=== PATIENT | female | born 1995 | race Caucasian/White ===

== ENCOUNTER 2018-01-23 08:10 | Emergency (ER) | payer OTHER ==
[2018-01-23 08:24] VITALS: BP 124/87
[2018-01-23] MEDS ORDERED: DEXAMETHASONE 10 MG/ML VIAL PO STA (08:31)
--- NOTE | 2018-01-23 08:35 | ED Physician Documentation ---
PD HPI SKIN - Stated complaint Stated Complaint: RASH ALL OVER BODY - Chief complaint Chief Complaint: General - History obtained from History obtained from: Patient - History of Present Illness Timing - onset: How many days ago (4) Timing - duration: Days Timing - details: Gradual onset, Still present, Waxing and waning Location: LUE Quality / character: Itchy, Burning Improved by: Benadryl Associated symptoms: Headache. No: Fever, Myalgias, Joint pain, Facial swelling, Dyspnea, Abd pain, N/V/D, Urinary sx Contributing factors: Exposed to medication Similar symptoms before: Has not had sx before Recently seen: Clinic - Additional information Additional information: 22-year-old female who was treated for acne and irritable bowel syndrome developed a rash on her arm and neck 4 days ago and discontinued the use of dicyclomine. This was the medicine she had been on for the briefest period of time. She been on this medicine for approximately 10 days. Since stopping this she is continued to have outbreaks of raised erythema and she has been taking some Benadryl. In addition she has some nasal congestion and a slight cough. Review of Systems Constitutional: denies: Fever Eyes: denies: Decreased vision, Photophobia Ears: denies: Ear pain Nose: reports: Rhinorrhea / runny nose, Congestion Throat: denies: Sore throat Cardiac: denies: Chest pain / pressure, Palpitations Respiratory: reports: Cough. denies: Dyspnea GI: denies: Nausea, Vomiting : denies: Dysuria, Frequency Skin: reports: Rash Musculoskeletal: denies: Neck pain, Back pain, Extremity pain Neurologic: denies: Generalized weakness, Focal weakness, Numbness PD PAST MEDICAL HISTORY - Past Medical History GI: Other Derm: Other Other Past Medical History: Acne, IBS - Present Medications Home Medications: Ambulatory Orders Medication Instructions Recorded Confirmed Dicyclomine [Bentyl] 10 mg 01/23/18 Ethinyl Estradiol/Drospirenone 1 tab 01/23/18 [Navya 28 Tablet] Minocycline HCl 100 mg 01/23/18 Spironolactone 100 mg PO 01/23/18 Sulfacetamide Sodium [Sodium 355 ml TP 01/23/18 Sulfacetamide] - Allergies Allergies/Adverse Reactions: Allergies Allergy/AdvReac Type Severity Reaction Status Date / Time No Known Drug Allergies Allergy Verified 01/23/18 08:24 - Social History Does the pt smoke?: No Smoking Status: Never smoker PD ED PE NORMAL - Vitals Vital signs reviewed: Yes (hypertensive ) - General General: Alert and oriented X 3, No acute distress, Well developed/nourished - HEENT HEENT: Atraumatic, PERRL, EOMI, Ears normal, Moist mucous membranes, Pharynx benign, Dentition benign - Neck Neck: Supple, no meningeal sign, No bony TTP - Cardiac Cardiac: RRR, No murmur - Respiratory Respiratory: No respiratory distress, Clear bilaterally - Abdomen Abdomen: Soft, Non tender - Back Back: No CVA TTP, No spinal TTP - Derm Derm: Normal color, Warm and dry, Other (There are 2 small urticarial wheels on the volar surface of the left forearm ) - Extremities Extremities: No deformity, No edema - Neuro Neuro: Alert and oriented X 3, special education educational assistant 2-12 intact, No motor deficit, No sensory deficit, Normal speech Eye Opening: Spontaneous Motor: Obeys Commands Verbal: Oriented GCS Score: 15 - Psych Psych: Normal mood, Normal affect Results - Vitals Vitals: Vital Signs - 24 hr 01/23/18 08:22 Temperature 36 C L Heart Rate 90 Respiratory 20 Rate Blood Pressure 124/87 H O2 Saturation 98 Oxygen O2 Source Room air PD MEDICAL DECISION MAKING - ED course Complexity details: considered differential, d/w patient ED course: 22 y/o female with a mild reaction presumed to dicyclomine. She has stopped the medication and is taking benadryl. Symptoms have improved but not abated. She is given dexamethasone and instructed to discontinue the dicyclomine and take benadryl for 2 days. - Sepsis Event Vital Signs: Vital Signs - 24 hr 01/23/18 08:22 Temperature 36 C L Heart Rate 90 Respiratory 20 Rate Blood Pressure 124/87 H O2 Saturation 98 Oxygen O2 Source Room air Departure - Departure Disposition: 01 Home, Self Care Clinical Impression: Allergic drug reaction Qualifiers: Encounter type: initial encounter Qualified Code(s): T78.40XA - Allergy, unspecified, initial encounter Condition: Stable Instructions: ED Drug React Allergic Follow-Up: PIERRE Cevallos [Provider Group] Comments: Today it appears you have had a reaction to the dicyclomine. Discontinue the use of this medicine and take Benadryl 25 mg every 6 hours for the next 2 days.
== END 2018-01-23 08:44 | disposition home or self-care (01) ==
LOC: ED 08:10
DX: R21 Rash and other nonspecific skin eruption (principal); L29.9 Pruritus, unspecified; R51 Headache; T44.3X5A Adverse effect of other parasympatholytics [anticholinergics and antimuscarinics] and spasmolytics, initial encounter
CPT/HCPCS: 99282; 99283

== ENCOUNTER 2018-08-03 07:55 | Outpatient (CLI) | payer OTHER ==
[2018-08-03] MEDS ORDERED: GADOBUTROL 7.5 MMOL/7.5 ML VIAL ONE (08:07)
[2018-08-03] MEDS ORDERED: GADOBUTROL 7.5 MMOL/7.5 ML VIAL IVP ONE (08:31)
--- NOTE | 2018-08-03 16:21 | MRI Report ---
Reason: DIZZINESS AND GIDDINESS Procedure Date: 08/03/2018 Accession Number: [id number] / [id number] Procedure: MRI - Brain W/WO CPT Code: FULL RESULT: EXAM: MRI BRAIN AND INTERNAL AUDITORY CANAL (IAC),WITHOUT AND WITH CONTRAST. EXAM DATE: 08/03/2018 09:02 AM. CLINICAL HISTORY: 23-year-old female. Dizziness and giddiness for 3 months. COMPARISON: None. TECHNIQUE: Multiplanar, multisequence T1-weighted and fluid-sensitive MRI sequences of the brain and IACs were performed. Other: None. IV Contrast: 7 cc Gadavist no parenchymal foci susceptibility artifact.. FINDINGS: Brain Volume: Normal for age. Parenchyma/Dura: No acute hemorrhage, mass, or acute infarct.No white matter lesions identified. No abnormal enhancement. Internal Auditory Canals (IACs): Normal. No cranial nerve lesion or inflammatory process identified. The inner ear structure are symmetric and unremarkable. Ventricles/Cisterns: No hydrocephalus. No abnormal extra-axial fluid collection or hemorrhage. Orbits: Symmetric and unremarkable. Sella Turcica: The pituitary gland, cavernous sinuses, suprasellar cistern and optic chiasm are unremarkable. Vasculature: Normal signal flow void is seen in the major arterial structures at the skull base. The dural sinuses are patent and enhance normally. Sinuses: No acute sinus disease. Bones: No focal pathologic appearing marrow signal changes. Other: None. IMPRESSION: 1. Normal MRI brain. 2. Normal MRI of the IAC and posterior fossa. The cerebellopontine angles bilaterally, the internal auditory canals bilaterally, the cochleas bilaterally, and the vestibular apparatuses bilaterally are unremarkable. No associated abnormal enhancement. RADIA
== END 2018-08-03 07:56 | disposition home or self-care (01) ==
LOC: DI 07:55
PROVIDERS: ATTEND General Practice
DX: R42 Dizziness and giddiness (principal)
CPT/HCPCS: 70553; A9585

== ENCOUNTER 2018-08-08 00:29 | Emergency (ER) | payer OTHER ==
[2018-08-08] MEDS ORDERED: SODIUM CHLORIDE 0.9% 1,000 ML IV ONE (02:31)
[2018-08-08] MEDS ORDERED: KETOROLAC 30 MG/ML VIAL IVP STA (02:31)
[2018-08-08] MEDS ORDERED: PROCHLORPERAZINE 10 MG/2 ML VIAL IVP STA (02:31)
[2018-08-08] MEDS ORDERED: diphenhydrAMINE INJ 50 MG/ML VIAL IVP STA (02:32)
[2018-08-08] MEDS ORDERED: DEXAMETHASONE 10 MG/ML VIAL IVP STA (02:32)
[2018-08-08 02:54] VITALS: BP 129/86
--- NOTE | 2018-08-08 03:02 | ED Physician Documentation ---
PD HPI HEADACHE - Stated complaint Stated Complaint: MIGRAINE - Chief complaint Chief Complaint: General - History obtained from History obtained from: Patient, Family - History of Present Illness Timing - onset: Enter time (0800), Yesterday Timing - onset during: Rest Timing - duration: Days (1) Timing - details: Gradual onset, Still present Worst headache ever?: No: Worst headache ever? Location: Right Quality: Throbbing, Aching Associated symptoms: Nausea, Vomiting. No: Fever, Stiff neck, Weakness, Numbness, Syncope, Seizure, Eye pain, Vision changes Improved by: Rest, Dark room, Quiet Worsened by: Light, Noise, Moving Contributing factors: No: Anticoagulated Similar symptoms before: Diagnosis (migraine) Recently seen: Clinic - Additional information Additional information: 23-year-old female with a history of migraine headaches has had an increase in her frequency of headaches recently and she has had an MRI done recently as well. Which was normal. She has been having issues with dizziness and headaches. She has developed a headache 4 days ago that lasted 2 days and she has developed another headache this morning and she has had this all day long and it is persistent and worsening. She did not want to go through what she went through with her last headache and she has come to the emergency department. Review of Systems Constitutional: denies: Fever, Chills, Myalgias Eyes: denies: Decreased vision Ears: denies: Loss of hearing, Ear pain Nose: denies: Rhinorrhea / runny nose, Congestion Throat: denies: Sore throat Cardiac: denies: Chest pain / pressure, Palpitations Respiratory: denies: Dyspnea, Cough GI: reports: Nausea, Vomiting. denies: Abdominal Pain, Constipation, Diarrhea : denies: Dysuria, Frequency Skin: denies: Rash Musculoskeletal: reports: Neck pain. denies: Back pain, Extremity pain PD PAST MEDICAL HISTORY - Past Medical History Past Medical History: Yes GI: Other Psych: Anxiety Musculoskeletal: Fibromyalgia Derm: Other Other Past Medical History: IBS - Past Surgical History Past Surgical History: No - Present Medications Home Medications: Ambulatory Orders Medication Instructions Recorded Confirmed Dicyclomine [Bentyl] 10 mg 01/23/18 Ethinyl Estradiol/Drospirenone 1 tab 01/23/18 [Navya 28 Tablet] Minocycline HCl 100 mg 01/23/18 Spironolactone 100 mg PO 01/23/18 Sulfacetamide Sodium [Sodium 355 ml TP 01/23/18 Sulfacetamide] - Allergies Allergies/Adverse Reactions: Allergies Allergy/AdvReac Type Severity Reaction Status Date / Time dicyclomine [From Bentyl] Allergy Hives Verified 08/08/18 00:38 - Social History Does the pt smoke?: No Smoking Status: Never smoker Does the pt drink ETOH?: Yes Does the pt have substance abuse?: No - Immunizations Immunizations are current?: Yes PD ED PE NORMAL - Vitals Vital signs reviewed: Yes (hypertensive mild ) - General General: Alert and oriented X 3, No acute distress, Well developed/nourished - HEENT HEENT: Atraumatic, PERRL, EOMI, Ears normal, Moist mucous membranes, Pharynx benign, Dentition benign - Neck Neck: Supple, no meningeal sign, No bony TTP, Other (There is mild spasm and pain to the right occiput at the insertion of the trapezius) - Cardiac Cardiac: RRR, No murmur - Respiratory Respiratory: No respiratory distress, Clear bilaterally - Abdomen Abdomen: Soft, Non tender - Back Back: No CVA TTP, No spinal TTP - Derm Derm: Normal color, Warm and dry, No rash - Extremities Extremities: No deformity, No edema - Neuro Neuro: Alert and oriented X 3, lean sensei 2-12 intact, No motor deficit, No sensory deficit, Normal speech Eye Opening: Spontaneous Motor: Obeys Commands Verbal: Oriented GCS Score: 15 - Psych Psych: Normal mood, Normal affect Results - Vitals Vitals: Vital Signs - 24 hr 08/08/18 08/08/18 08/08/18 00:38 02:47 02:49 Temperature 36.5 C Heart Rate 99 90 Respiratory 18 17 17 Rate Blood Pressure 138/94 H 138/101 H O2 Saturation 100 100 08/08/18 02:53 Temperature Heart Rate Respiratory Rate Blood Pressure 129/86 H O2 Saturation Oxygen O2 Source Room air PD MEDICAL DECISION MAKING - ED course Complexity details: reviewed results, re-evaluated patient, considered differential, d/w patient ED course: 23-year-old female with a persistent migrainous headache is administered a migraine cocktail including saline, Compazine, Benadryl, dexamethasone and Toradol. Departure - Departure Disposition: 01 Home, Self Care Clinical Impression: Migraine Qualifiers: Migraine type: without aura Status migrainosus presence: without status migrainosus Intractability: not intractable Qualified Code(s): G43.009 - Migraine without aura, not intractable, without status migrainosus Instructions: ED Headache Migraine Follow-Up: BECCA TRIANA [Primary Care Provider] -
== END 2018-08-08 03:31 | disposition home or self-care (01) ==
LOC: ED 00:29
DX: G43.009 Migraine without aura, not intractable, without status migrainosus (principal)
CPT/HCPCS: 96374; 96375; 99283; 99284; J1200